=== PATIENT | female | born 1960 | race Caucasian/White ===

== ENCOUNTER 2017-02-25 17:14 | Emergency (ER) | payer BC ==
[~2017-02-25] VITALS: Ht 165.1 cm; Wt 58.1 kg
[2017-02-25] MEDS ORDERED: methylPREDNISolone SOD SUCC 40 MG/ML VIAL IM ONE (19:00)
--- NOTE | 2017-02-25 19:04 | NUR ---
Patient discharged to home in stable conditon. Written and verbal after care instructions given. Patient verbalizes understanding of instructions. Stressed follow up pmd.
[2017-02-25] MEDS ORDERED: methylPREDNISolone SOD SUCC 125 MG/2 ML VIAL ONE (19:09)
== END 2017-02-25 19:06 | disposition home or self-care (01) ==
LOC: ER 17:15
DX: L25.9 Unspecified contact dermatitis, unspecified cause (principal); Z88.6 Allergy status to analgesic agent
CPT/HCPCS: A4663; J2930

== ENCOUNTER 2018-04-09 07:04 | Emergency (ER) | payer BC ==
[~2018-04-09] VITALS: Ht 165.1 cm; Wt 59.0 kg
[2018-04-09] MEDS ORDERED: MORPHINE SULFATE 4 MG/1 ML DISP.SYRIN SQ ONE ×2 (07:15→09:00)
[2018-04-09] MEDS ORDERED: MORPHINE SULFATE 4 MG/1 ML DISP.SYRIN ONE ×2 (07:21→08:58)
--- NOTE | 2018-04-09 07:21 | NUR ---
PT IS IN ROOM #2A. DR GUZMAN EVALUATED THE PT.
[2018-04-09] MEDS ORDERED: BUPIVACAINE PF 0.5% 30 ML VIAL TP ONE (08:15)
[2018-04-09] MEDS ORDERED: BUPIVACAINE PF 0.5% 30 ML VIAL ONE (08:22)
--- NOTE | 2018-04-09 09:56 | NUR ---
PT WAS D/C TO HOME. GAIT IS STABLE. PT DENIES PAIN. D/C INSTRUCTIONS GIVEN TO THE PT.
[2018-04-09 10:02] VITALS: BP 132/75
== END 2018-04-09 10:03 | disposition home or self-care (01) ==
LOC: ER 07:04
DX: S52.502A Unspecified fracture of the lower end of left radius, initial encounter for closed fracture (principal); S52.602A Unspecified fracture of lower end of left ulna, initial encounter for closed fracture; Z88.5 Allergy status to narcotic agent; Z88.8 Allergy status to other drugs, medicaments and biological substances; W01.0XXA Fall on same level from slipping, tripping and stumbling without subsequent striking against object, initial encounter; Y93.89 Activity, other specified; Y92.89 Other specified places as the place of occurrence of the external cause; Y99.8 Other external cause status
CPT/HCPCS: 73100; 73110; A4663; J2270; J3490